=== PATIENT | male | born 1960 | race Caucasian/White ===

== ENCOUNTER 2019-09-28 07:25 | Outpatient (CLI) | payer BC, SELFPAY ==
[2019-09-28 07:40] LABS: Basophils Absolute Auto 0.03 K/mm3 (0.00-0.10); Basophils Percent Auto 0.5 % (0.0-1.0); Eosinophils Percent Auto 3.2 % (1.0-6.0); Hematocrit 41.9 % (40.0-54.0); Hemoglobin 14.2 g/dL (14.0-18.0); Immature Granulocyte Absolute 0.01 K/mm3 (0.00-0.00); Immature Granulocyte Percent A 0.2 % (0.0-0.0); Lymphocytes Absolute Auto 1.82 K/mm3 (1.10-4.50); Lymphocytes Percent Auto 28.9 % (18.0-42.0); Mean Corpuscular HGB Conc 33.9 g/dL (32.0-36.0); Mean Corpuscular Hemoglobin 31.3 pg (27.0-31.0); Mean Corpuscular Volume 92.5 fL (78.0-102.0); Mean Platelet Volume 9.5 fl (8.7-11.0); Monocytes Absolute Auto 0.73 K/mm3 (0.10-0.90); Monocytes Percent Auto 11.6 % (2.0-11.0); Neutrophils Absolute Auto 3.5 K/mm3 (1.7-7.2); Neutrophils Percent Auto 55.6 % (50.0-70.0); Platelet Count Result 175 K/mm3 (150-420); Red Blood Count 4.53 M/mm3 (4.70-6.10); Red Cell Distribution Width 12.9 % (11.6-14.4); White Blood Count 6.3 K/mm3 (4.8-10.8)
[2019-09-28 07:49] LABS: Hemoglobin A1C 6.9 % (<5.7)
[2019-09-28 08:52] LABS: Alanine Aminotransferase 24 U/L (16-63); Albumin Level 3.9 g/dL (3.4-5.0); Alkaline Phosphatase 72 U/L (46-116); Anion Gap 12.1 mmol/L (7-16); Aspartate Amino Transferase 21 U/L (15-37); Bilirubin,Total 1.3 mg/dL (0.00-1.00); Blood Urea Nitrogen 16 mg/dL (7-18); Calcium 8.9 mg/dL (8.5-10.1); Carbon Dioxide 30 mmol/L (21-32); Chloride 100 mmol/L (98-108); Cholesterol 113 mg/dL (0-200); Estimated Glomerular Filt Rate > 60; Glucose 158 mg/dL (70-99); HDL Direct 50 mg/dL (40-60); LDL Cholesterol Calculated 46 mg/dL (<130); Osmolality Calculated 290 mOsm/kg (285-295); Potassium 4.1 mmol/L (3.5-5.1); Prostate Specific Antigen 0.9 ng/mL (< OR = 4.0); Sodium 138 mmol/L (136-145); Triglycerides 84 mg/dL (0-150)
== END 2019-09-28 07:26 | disposition home or self-care (01) ==
PROVIDERS: PCP Internal Medicine; Visit Provider Internal Medicine
DX: E78.5 Hyperlipidemia, unspecified (principal); I10 Essential (primary) hypertension; E11.9 Type 2 diabetes mellitus without complications; Z12.5 Encounter for screening for malignant neoplasm of prostate
CPT/HCPCS: 36415; 80053; 80061; 83036; 84153; 85025; G0103

== ENCOUNTER 2020-07-13 07:38 | Outpatient (CLI) | payer BC, SELFPAY ==
--- NOTE | ~2020-07-13 | XR_ITS ---
EXAMINATION: XR sacrum coccyx min 2V DATE: 07/13/2020 08:04 INDICATION: Sacrococcygeal pain. TECHNIQUE: 3 views of the sacrum and coccyx were obtained. COMPARISON: Pelvis radiograph 03/28/2009 FINDINGS: Bone alignment is normal. No fracture. There is mild osteoarthritis of the sacroiliac joint s. IMPRESSION: 1. Mild osteoarthritis of the sacroiliac joints. Reviewed, dictated and finalized at location B. GRINDER
--- NOTE | ~2020-07-13 | XR_ITS ---
EXAMINATION: XR lumbar spine 2-3V DATE: 07/13/2020 08:03 INDICATION: Sacrococcygeal pain. TECHNIQUE: 3 views of lumbar spine were obtained. COMPARISON: None. FINDINGS: There is 4 degrees dextrocurvature of lumbar spine. Vertebral body heights and intervertebr al disc heights are normal. There are endplate osteophytes at most levels. There is multilevel mild f acet joint osteoarthritis. IMPRESSION: 1. Mild lumbar spondylosis. Reviewed, dictated and finalized at location B. 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 Mild lumbar spondylosis.
== END 2020-07-13 07:39 | disposition home or self-care (01) ==
LOC: CHSIMG 07:40
PROVIDERS: PCP Internal Medicine; Visit Provider Internal Medicine
DX: M53.3 Sacrococcygeal disorders, not elsewhere classified (principal)
CPT/HCPCS: 72100; 72220

== ENCOUNTER 2021-05-26 16:51 | Emergency (ER) | payer BC, SELFPAY ==
--- NOTE | ~2021-05-26 | XR_ITS ---
EXAMINATION: XR foot RT min 3V DATE: 05/26/2021 17:22 INDICATION: Right fifth toe injury. TECHNIQUE: 3 views of right foot were obtained. COMPARISON: None. FINDINGS: There is a transverse fracture of neck of fifth proximal phalanx. The distal fracture fragm ent demonstrates impaction and 21 degrees lateral angulation. There is mild osteoarthritis of first m etatarsophalangeal joint and some of the interphalangeal joints. There are enthesophytes at the poste rior and plantar aspects of calcaneal tuberosity. IMPRESSION: 1. Transverse fracture of neck of fifth proximal phalanx. Reviewed, dictated and finalized at location A. Y HELPER
[2021-05-26 17:10] VITALS: BP 150/84; PULSE 72; RESP 16; TEMP 36.3; O2SAT 99
--- NOTE | 2021-05-26 17:33 | ED.LOWEXIN ---
HPI - Extremity Injury (Lower) General Chief Complaint: Extremity Injury, Lower Stated Complaint: broken toe Source: patient Mode of arrival: ambulatory History of Present Illness HPI Narrative: is a 61-year-old gentleman that presents after he stubbed his toe causing some bruising swelling with some mild deformity with no numbness or tingling has good range of motion although mildly diminished in his right 5th toe. complaint: foot injury Injury: Right: toes ( 5th toe injury with bruising and swelling) Type of Injury: blunt Place: other Related Data Home Medications Medication Instructions Recorded Confirmed brimonidine 0.2 % eye drops 1 drp EACH EYE Q8H 01/23/21 05/26/21 latanoprost 0.005 % eye drops 1 drp EACH EYE DAILY 01/23/21 05/26/21 losartan 100 mg tablet 100 mg PO DAILY 01/23/21 05/26/21 metformin 500 mg tablet 500 mg PO TID 01/23/21 05/26/21 rosuvastatin 40 mg tablet 40 mg PO DAILY 01/23/21 05/26/21 Allergies Allergy/AdvReac Type Severity Reaction Status Date / Time No Known Allergies Allergy Verified 05/26/21 17:09 Review of Systems Review of Systems: All systems reviewed & are unremarkable except as noted in HPI and below PMFSH Past Medical History Medical History Coronary artery disease Family History Family History Mother Diabetes mellitus Hypertension Social History Social History Smoking status: Never smoker Alcohol intake: never Substance use: never Substance use type: does not use Exam Const: General: no acute distress Orientation/consciousness: patient oriented x3 HENMT: Head: normal to inspection Eyes: Conjunctivae: conjunctivae normal Pupils: Equal, round and reactive pupils present Neck: Neck: normal visual inspection, no lymphadenopathy and no meningeal signs Chest: Chest palpation & inspection: normal inspection of the chest Resp: Effort & Inspection: normal respiratory effort Auscultation: clear to auscultation bilaterally Cardio: Rate: regular rate Rhythm: regular rhythm GI: GI Palp: Yes Soft to palpation Percussion: Yes normal to percussion Skin: General skin exam: normal color Other: bruising right lateral aspect of his 5th toe Neuro: General: patient oriented x3 and moves all extremities Extrem: General: normal to inspection and edema Psych: Mental Status: mental status grossly normal Affect: normal affect Course Course Emergency Course: x-rays reviewed with patient and will bassam tape 5th toe to his 4th toe advised take Tylenol or Motrin for pain and follow-up with his primary care physician. Vital Signs Vital signs: Vital Signs Temperature 36.3 C L 05/26/21 17:10 Pulse Rate 72 05/26/21 17:10 Respiratory Rate 16 05/26/21 17:10 Blood Pressure 150/84 H 05/26/21 17:10 Pulse Oximetry 99 05/26/21 17:10 Temperature 36.3 C L 05/26/21 17:10 Pulse Rate 72 05/26/21 17:10 Respiratory Rate 16 05/26/21 17:10 Blood Pressure 150/84 H 05/26/21 17:10 Pulse Oximetry 99 05/26/21 17:10 Critical Care Time Critical Care Time Critical Care Time: No Discharge Plan Discharge Clinical Impression: Fracture of toe Qualifiers: Encounter type: initial encounter Toe: lesser toe Fracture type: closed Phalanx: distal Fracture alignment: nondisplaced Laterality: right Qualified Code(s): S92.534A - Nondisplaced fracture of distal phalanx of right lesser toe(s), initial encounter for closed fracture Patient Disposition: Home, Self-Care Condition: Stable Instructions: Antibiotic Form, Toe Fracture (ED) Prescriptions: No Action metformin 500 mg tablet 500 mg PO TID RF: 0 rosuvastatin 40 mg tablet 40 mg PO DAILY RF: 0 losartan 100 mg tablet 100 mg PO DAILY RF: 0 latanoprost 0.005 % drops 1 drp EACH EYE DAILY RF: 0 brimonid
== END 2021-05-26 17:45 | disposition home or self-care (01) ==
PROVIDERS: Emergency Provider Emergency Medicine; PCP Internal Medicine
DX: S92.534A Nondisplaced fracture of distal phalanx of right lesser toe(s), initial encounter for closed fracture (principal); W22.8XXA Striking against or struck by other objects, initial encounter
CPT/HCPCS: 73630; 99282; 99283

== ENCOUNTER 2021-08-02 14:34 | Outpatient (CLI) | payer BC, SELFPAY | END 2021-08-02 14:35 | disposition home or self-care (01) | PROVIDERS: PCP Internal Medicine; Visit Provider Otolaryngology | DX: H90.3 Sensorineural hearing loss, bilateral (principal) | CPT/HCPCS: 92557; 92567 ==

== ENCOUNTER 2021-09-12 07:59 | Outpatient (CLI) | payer BC, SELFPAY ==
--- NOTE | 2021-09-12 08:11 | ECG_ITS ---
Measurements Intervals [place] Rate: 53 P: 68 TN: 135 QRS: -40 QRSD: 160 T: 25 QT: 452 QTc: 426 Interpretive Statements SINUS BRADYCARDIA MARKED LEFT AXIS DEVIATION [QRS AXIS < -30] RIGHT BUNDLE BRANCH BLOCK [120+ ms QRS DURATION, UPRIGHT V1, 40+ ms S IN I/aVL/V4/V5/V6] ABNORMAL ECG NO PREVIOUS ECG AVAILABLE FOR COMPARISON Electronically Signed On 09-12-2021 14:04:11 CDT by Gordon Schwab M.D.
[2021-09-12 08:40] LABS: Anion Gap 5 mmol/L (8-16); Blood Urea Nitrogen 19 mg/dL (9-20); Calcium 9.1 mg/dL (8.4-10.2); Carbon Dioxide 30 mmol/L (22-30); Chloride 103 mmol/L (98-107); Estimated Glomerular Filt Rate > 60; Glucose 121 mg/dL (65-110); Potassium 4.8 mmol/L (3.4-5.0); Sodium 138 mmol/L (137-145)
== END 2021-09-12 08:00 | disposition home or self-care (01) ==
LOC: ANHSURGERY 08:04
PROVIDERS: Anesthesiology; PCP Internal Medicine; Visit Provider Surgery
DX: Z01.818 Encounter for other preprocedural examination (principal); K40.91 Unilateral inguinal hernia, without obstruction or gangrene, recurrent; I51.9 Heart disease, unspecified; E11.9 Type 2 diabetes mellitus without complications; I45.10 Unspecified right bundle-branch block; R00.1 Bradycardia, unspecified
CPT/HCPCS: 36415; 80048; 86850; 86900; 86901; 93005

== ENCOUNTER 2021-09-18 00:11 | Day surgery (SDC) | payer BC, SELFPAY ==
[2021-09-10 08:33] VITALS: BMI 21.4
--- NOTE | 2021-09-10 08:40 | PC.NURSE ---
Report to the Outpatient Waiting Room, entrance under the green pavilion located off [facility], at time _0600_ on date 09-18-2021_. OR Time: _0730_. - You and your visitor will be asked a series of questions to screen for COVID 19 for your protection. - A mask is required within the hospital. Preoperative COVID Testing Requirements: No COVID Test needed if: (proof is required; if not received patient will have Rapid Test prior to entry) - Patient has received COVID Vaccine at least 14 days prior to procedure date or - Patient has positive COVID test result within last 90 days of surgery date. COVID Test needed if above criteria is not met If not COVID vaccinated a COVID test must be conducted within 72 hours of surgery and patient is asked to isolate self from time of testing until procedure. You will go to the [facility] for your COVID testing. The [facility] Testing site is located at the corner of [address] [facility]. You will only be called if COVID results are positive and your surgeon may reschedule your elective surgery date. Patients may have clear liquids (water, carbonated beverages, clear teas, apple juice) until 3 hours prior to surgery with a maximum of 20 ounces. - No food from midnight until time of surgery - Infants may have breast milk until 4 hours before surgery, formula 6 hours prior to surgery. - Children will be allowed to drink immediately following surgery. If applicable, please bring a bottle or sippy cup to assist with drinking. Juice, water, soda, and popsicles are readily available. For infants on formula, please bring formula the day of surgery. Pacifiers are allowed. Take the following medications with a SIP of water the morning of surgery: Medications to discontinue per physician All vitamins and supplements Date to take last wwau [id number]___ Please no make-up, nail namibian, hairspray, perfume, deodorant, or body powder the day of surgery. No jewelry (including any body piercings) or valuables the day of surgery, leave them at home. Please take a shower or bath the night before, or the morning of, surgery with an Hebiclenseantibacterial soap. Wear comfortable, loose fitting clothing. Children are encouraged to wear pajamas. - Jewelry must be removed prior to entering the operating room. Rings and piercings that are not removed may be cut off. - The hospital will not accept responsibility for valuables. - Please leave all valuables, including medications, at home the day of surgery. If you are going home after surgery, a licensed backhaul driver must drive you home. - NO public transportation without another adult. - We recommend that an adult stay with you for 24 hours following discharge. - We also recommend that you do not drive, make important decision, drink alcoholic beverages, or take any drugs that were not prescribed by your health care provider for at least 24 hours after your discharge time. For Pediatric surgeries, we recommend two adults accompany the child home (only one inside the building at this time). One visitor will be allowed to accompany the patient into the hospital. Patients visitor will be instructed to remain with patient at all times or leave the building. We will allow the visitor to come back to the postoperative area when patient is ready. Follow any additional instructions given to you from your surgeon. Telephone instructions given to __Patient___and asked if any additional questions and then verbalized understanding. Patient advised to call surgeon office or pre surgery nurse liaison [phone] if any additional questions.
--- NOTE | 2021-09-17 15:20 | WPDANESEPPF ---
Anes - Initial Pre Proc Eval Procedure: Operation Date: 09/18/21 07:30 Proposed Procedures p Laparoscopic Right Recurrent Inguinal Hernia Repair with Mesh, Davinci Assisted - Jose Campo DO Date/Time: 09/17/21 15:20 Surgeon: Jose Campo DO Pre Op Diagnosis: recurrent right inguinal hernia Patient Data Age: 61 Gender: M Height: 1.78 m Weight: 67.8 kg Allergies Allergy/AdvReac Type Severity Reaction Status Date / Time No Known Allergies Allergy Verified 09/18/21 06:24 Home Medications Medication Instructions Recorded Confirmed Type brimonidine 0.2 % eye drops 1 drp EACH EYE Q8H 01/23/21 09/18/21 History latanoprost 0.005 % eye drops 1 drp EACH EYE DAILY 01/23/21 09/18/21 History aspirin 81 mg PO DAILY 09/10/21 09/18/21 History metformin 500 mg PO DAILY 09/10/21 09/18/21 History rosuvastatin 10 mg PO EVERY OTHER DAY 09/10/21 09/18/21 History Patient hx anesthesia problems: none Family hx anesthesia problems: none Results Review: All pre-operative results and documents have been reviewed as part of the pre-operative evaluation. [facility] Past Medical History Medical History (Updated 09/17/21 @ 15:21 by Rory Montana MD) Coronary artery disease Diabetes High blood pressure High cholesterol Surgical History Surgical History (Updated 09/17/21 @ 15:21 by Rory Montana MD) History of coronary artery stent placement History of inguinal hernia repair RIGHT SIDE 1979 Family History Family History Mother Diabetes mellitus Hypertension Social History Social History Smoking packs per day: 0.5 Smoking cigarettes per day: 10.0 Years smoked: 5 Smoking pack-years: 2.50 Smoking status: Former smoker Smoking end date: 09/10/84 Alcohol intake: current Drinks per week: 4 Alcohol use details: SOCIALLY Substance use: never Substance use type: does not use Living arrangements: with family 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 Informed Consent: The patient's anesthetic plan and its attendant risks and benefits were discussed with the patient/family/POA. Questions were solicited and answers provided to the satisfaction of the patient/family/POA.
[2021-09-18] VITALS (7 sets, daily range): BP systolic 108–135; BP diastolic 66–72; PULSE 48–76; RESP 12–17; TEMP 36.3; O2SAT 96–100
[2021-09-18] MEDS: ACETAMINOPHEN 500 MG TABLET 1000 MG PO (06:31)
[2021-09-18 06:43] LABS: Glucose Point of Care 122 mg/dl (65-105)
[2021-09-18] MEDS: LACTATED RINGERS 1,000 ML 30 ML IV CONT ×3 (07:00→10:00)
[2021-09-18] MEDS: KETOROLAC 15 MG/ML VIAL (*BKC) IV PUSH (07:01)
--- NOTE | 2021-09-18 07:12 | PM.IMHP ---
H&P: HPI History of Present Illness Date/Time: 09/18/21 07:12 Chief Complaint: right inguinal hernia Narrative: 61 yo man presents for right inguinal hernia repair. He denies any changes since last seen in office. Review of Systems Review of Systems: All systems reviewed & are unremarkable except as noted in HPI and below Constitutional: Constitutional: Denies chills, Denies fever(s), Denies headache(s) and Denies weight loss Eyes: Eyes: Denies change in vision ENT: Denies dizziness, Denies headache(s), Denies neck mass and Denies throat swelling Cardiovascular: Cardiovascular: Denies chest pain, Denies lightheadedness and Denies dyspnea Respiratory: Respiratory: Denies cough, Denies dyspnea and Denies wheezing Gastrointestinal: Gastrointestinal: Denies abdominal pain, Denies change in bowel habits, Denies nausea and Denies vomiting Genitourinary: Genitourinary: Denies hematuria and Denies dysuria Musculoskeletal: Musculoskeletal: Reports as per HPI Integumentary/Breasts: Skin/Breast: Reports as per HPI Neurologic: Denies dizziness and Denies headache(s) Allergic/Immunologic: Allergic/Immunologic: Denies throat swelling and Denies wheezing [facility] Past Medical History Medical History (Updated 09/17/21 @ 15:21 by Rory Montana MD) Coronary artery disease Diabetes High blood pressure High cholesterol Surgical History Surgical History (Updated 09/17/21 @ 15:21 by Rory Montana MD) History of coronary artery stent placement History of inguinal hernia repair RIGHT SIDE 1979 Family History Family History Mother Diabetes mellitus Hypertension Social History Social History Smoking packs per day: 0.5 Smoking cigarettes per day: 10.0 Years smoked: 5 Smoking pack-years: 2.50 Smoking status: Former smoker Smoking end date: 09/10/84 Alcohol intake: current Drinks per week: 4 Alcohol use details: SOCIALLY Substance use: never Substance use type: does not use Living arrangements: with family 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 care concerns: No Meds Home Medications and Allergies Home Medications Medication Instructions Recorded Confirmed Type brimonidine 0.2 % eye drops 1 drp EACH EYE Q8H 01/23/21 09/18/21 History latanoprost 0.005 % eye drops 1 drp EACH EYE DAILY 01/23/21 09/18/21 History aspirin 81 mg PO DAILY 09/10/21 09/18/21 History metformin 500 mg PO DAILY 09/10/21 09/18/21 History rosuvastatin 10 mg PO EVERY OTHER DAY 09/10/21 09/18/21 History Allergies Allergy/AdvReac Type Severity Reaction Status Date / Time No Known Allergies Allergy Verified 09/18/21 06:24 Vital Signs Vital Signs - 24 hr 09/18/21 06:12 Temperature 36.3 C L Pulse Rate 58 L Respiratory Rate 16 Blood Pressure 116/72 Pulse Oximetry 98 Exam Const: General: no acute distress and alert Orientation/consciousness: patient oriented x3 HENMT: Head: normocephalic and atraumatic Ears: hearing grossly normal bilaterally General nose exam: Normal nares present Mouth: Yes Normal oral and palatal mucosa present Eyes: Periorbital: periorbital findings normal Sclera: sclerae normal EOM: EOMs intact bilaterally Neck: Neck: normal visual inspection, no lymphadenopathy and trachea midline Chest: Chest palpation & inspection: normal inspection of the chest Resp: Effort & Inspection: normal respiratory effort Auscultation: clear to auscultation bilaterally Cardio: Jugular venous distension: no JVD Rate: regular rate Rhythm: regular rhythm Heart sounds: S1 normal heart sound present and S2 normal heart sound present Peripheral pulses: Peripheral pulses 2+ throughout GI: Inspection: normal to inspection GI Palp: Yes Soft to palpation, No Tenderness to palpation present (GI), No Guarding due to palpation present (GI), Yes Hernia pr
--- NOTE | 2021-09-18 07:30 | WPDHPUPDATE1 ---
History and Physical Update Update Date/Time: 09/18/21 07:30 History and Physical has been reviewed, including an updated exam of the patient. There are NO changes in the patient's condition. Risks, benefits, and alternatives have been discussed and questions answered. Patient agrees to proceed with procedure.
[2021-09-18] MEDS: ceFAZolin 2 GM/D5W 50 ML 2 GM/50 ML BAG IVPB (07:32)
--- NOTE | 2021-09-18 09:19 | W.PM.PROC2 ---
Procedure Note - Detailed Date of Procedure 09/18/21 Pre-op Diagnosis recurrent right inguinal hernia Post-op Diagnosis Same Procedure Performed 1. Laparoscopic recurrent right inguinal hernia repair with mesh, da Charisse assisted 2. Laparoscopic left inguinal hernia repair with mesh, da Charisse assisted Surgeon Jose Campo, Anesthesia General and Local (0.5% bupivacaine with epinephrine) Indications This is a 61-year-old man who presented with a right groin some discomfort over the past months. He does not recall any injury that caused this. He does have a history of a right inguinal hernia repair that was done open in 1979. Denies any other abdominal surgeries. He was found have a reducible right inguinal hernia on physical exam. Discussions were made with the patient treatment options. Decision was made to proceed with robotic assisted laparoscopic recurrent right hernia repair with mesh. Findings Upon inspecting the abdomen laparoscopically, patient was found to have a recurrent direct right inguinal hernia. He was also found to have an indirect left inguinal hernia. Decision was made to repair both hernias at the same time. A robotic transabdominal preperitoneal approach was utilized. Preperitoneal plane was created wide enough on each side and large Bard 3DMax mid mesh was placed on each side. No specimens were obtained for pathology. Description of Procedure Procedure as well as risks, benefits, and alternatives were discussed with the patient. Written consent was obtained and placed in chart prior to procedure. Patient was brought back to surgical suite. He was placed supine on operating table. Time-out was done to confirm patient and procedure. He was then intubated by Anesthesia Department. His abdomen was prepped and draped in sterile fashion using chlorhexidine prep. 0.5% bupivacaine with epinephrine was infiltrated at each location for incision. A 12 millimeter transverse incision was made just superior to the umbilicus using a 15 blade scalpel. Blunt dissection was carried out down to the linea alba. A vertical incision was made at the linea alba using a 15 blade scalpel. The peritoneum was then bluntly entered. A 12 millimeter trocar was inserted and carbon dioxide insufflation was used to create a pneumoperitoneum. A camera was inserted and the abdominal cavity was inspected. The patient was placed in slight Trendelenburg position. An 8 millimeter incision was made on the right lateral abdomen and an 8 millimeter trocar was inserted under direct visualization. Another 8 millimeter incision was made in the left lateral abdomen and an 8 millimeter trocar was inserted under direct visualization. The robotic arms were brought up to the patient's bedside and secured to the ports. The camera and instruments were inserted. I then moved over to the robotic console and took control of the camera and instruments. After careful inspection of the abdominal cavity, I began scoring the peritoneum along the right lower quadrant using scissors with electrocautery. The preperitoneal plane was entered and this was carefully dissected caudally along the inferior epigastric vessels. Careful dissection with scissors with electrocautery and blunt dissection was used to continue this dissection. I dissected far enough laterally to allow for mesh placement, and also dissected medially to identify the pubic arch and Marvin's ligament. The hernia sac was identified and carefully dissected posteriorly. The cord contents were also identified and the peritoneum was carefully dissected far enough posteriorly to allow for mesh placement. Once an adequate pocket was created, I then placed the mesh within the preperitoneal pocket and carefully unfolded it. The mesh was centered on the hernia defect with adequate overlap circumferentially. The inferior edge of the mesh was inspected to ensure that it was far enough away from the peritoneal edge. The
[2021-09-18 09:43] LABS: Glucose Point of Care 162 mg/dl (65-105)
== END 2021-09-18 11:30 | disposition home or self-care (01) ==
PROVIDERS: PCP Internal Medicine; Visit Provider Surgery
PROC: 8E0Y4CZ Robotic Assisted Procedure of Lower Extremity, Percutaneous Endoscopic Approach (ICD-10-PCS; CPT 49650; principal; 2021-09-18 07:30)
DX: K40.91 Unilateral inguinal hernia, without obstruction or gangrene, recurrent (principal); K40.90 Unilateral inguinal hernia, without obstruction or gangrene, not specified as recurrent; I25.10 Atherosclerotic heart disease of native coronary artery without angina pectoris; E11.9 Type 2 diabetes mellitus without complications; E78.00 Pure hypercholesterolemia, unspecified; I10 Essential (primary) hypertension; Z87.891 Personal history of nicotine dependence; Z79.84 Long term (current) use of oral hypoglycemic drugs; Z79.82 Long term (current) use of aspirin; Z95.5 Presence of coronary angioplasty implant and graft
CPT/HCPCS: 49651; 49650; S2900; 82948; A9270; C1781; J0690; J1100; J1885; J2405; J2704; J2710; J3010; J7120

== ENCOUNTER 2023-09-03 02:40 | Day surgery (SDC) | payer BC, SELFPAY ==
[2023-09-02 13:35] VITALS: BMI 23.8
[2023-09-03 09:36] VITALS: BP 164/96; PULSE 62; RESP 16; O2SAT 97
--- NOTE | 2023-09-03 10:04 | P.OP_ITS ---
Procedure Note - Detailed Date of Procedure 09/03/23 Pre-op Diagnosis Unexplained recurrent near-syncope Post-op Diagnosis Same Procedure Performed Loop recorder implantation Surgeon Dany Griffin MD Anesthesia Local Indications Unexplained recurrent near-syncope Findings Brief History of Present Illness: Patient is a very pleasant 63-year-old male with a history of CAD, hypertension, hyperlipidemia with complaints of recurrent unexplained near-syncope with evidence for sinus pauses and bradycardia as possible contribution referred for loop recorder implantation for further evaluation. Description of Procedure After verbal and written informed consent was obtained from the patient risks, benefits, and alternatives explained in detail the patient agreed to proceed with the plan of care as outlined above. Patient was evaluated at bedside in the [facility] procedure room. Patient was placed the appropriate supine position. Left anterior chest wall was prepped and draped in the usual sterile fashion. Operators in appropriate sterile garb. The left 4th intercostal space was identified and marked. Utilizing approximately 17 cc of 1% subcutaneous lidocaine the left anterior chest wall was then locally anesthetized. After local anesthesia was achieved, 2 fingerbreadths left of the sternum at the 4th intercostal space was again identified and a 1 cm incision was made with the inc luded skin punch tool. Following this with the included introducer, a tract was made subcutaneously at a 45 degree angle from the sternum. The introducer was then inverted 180 degrees and with the included plunger the Medtronic REVEAL LINQ II loop recorder was advanced subcutaneously into position easily and without complication. The plunger was then removed followed by the introducer. Manual pressure was held for least 5-10 min with excellent hemostasis. The device was then interrogated and revealed excellent fidelity and measured at 0.8mV. The Medtronic REVEAL LINQ II SN [id number] was implanted without complication. The incision was then approximated and closed using Exofin skin adhesive. The incision was then covered with a sterile dressing. Complications: None Implants Medtronic Reveal LINQ II SN [id number] Estimated Blood Loss 1 Drains No Packing No Pathology None sent Complications No immediate complications Condition Stable Disposition Same day
--- NOTE | 2023-09-03 10:04 | WPDHPUPDATE1 ---
History and Physical Update Update Date/Time: 09/03/23 10:04 History and Physical has been reviewed, including an updated exam of the patient. There are NO changes in the patient's condition. Risks, benefits, and alternatives have been discussed and questions answered. Patient agrees to proceed with procedure.
[2023-09-03 10:10] VITALS: BP 167/94; PULSE 70; RESP 17; O2SAT 96
[2023-09-03 10:15] VITALS: BP 165/95; PULSE 75; RESP 21; O2SAT 96
[2023-09-03 10:20] VITALS: BP 176/101; PULSE 77; RESP 16; O2SAT 98
[2023-09-03 10:25] VITALS: BP 166/104; PULSE 78; RESP 22; O2SAT 97
== END 2023-09-03 10:52 | disposition home or self-care (01) ==
PROVIDERS: PCP Internal Medicine; Visit Provider Internal Medicine Cardiovascular Disease
PROC: (CPT 33285; principal; 2023-09-03 10:00)
DX: R55 Syncope and collapse (principal); I25.10 Atherosclerotic heart disease of native coronary artery without angina pectoris; I10 Essential (primary) hypertension; E78.5 Hyperlipidemia, unspecified
CPT/HCPCS: 33285; C1764

== ENCOUNTER 2024-05-06 01:33 | Day surgery (SDC) | payer BC, SELFPAY ==
[2024-05-05 13:10] VITALS: BMI 23.3
[2024-05-06] VITALS (18 sets, daily range): BP systolic 122–169; BP diastolic 86–103; PULSE 54–67; RESP 12–20; TEMP 37; O2SAT 94–97; BMI 24.7
[2024-05-06 09:08] LABS: Basophils Percent Auto 0.5 % (0.2-1.2); Eosinophils Absolute Auto 0.2 K/mm3 (0-0.3); Eosinophils Percent Auto 3.2 % (0-4.4); Hematocrit 46.1 % (42.0-52.0); Hemoglobin 15.5 g/dL (14.0-18.0); Immature Granulocyte Absolute 0.02 K/mm3 (0.00-0.031); Immature Granulocyte Percent A 0.4 % (0-0.5); Lymphocytes Percent Auto 19.4 % (18.3-44.2); Mean Corpuscular HGB Conc 33.6 g/dl (32-36); Mean Corpuscular Hemoglobin 31.4 pg (26-34); Mean Corpuscular Volume 93.5 fl (80-100); Mean Platelet Volume 9.5 fl (7.4-10.4); Monocytes Absolute Auto 0.6 K/mm3 (0.1-0.6); Monocytes Percent Auto 11.1 % (2.6-8.5); Neutrophils Absolute Auto 3.7 K/mm3 (1.3-6.7); Neutrophils Percent Auto 65.4 % (45.5-73.1); Platelet Count Result 197 k/mm3 (150-375); Red Blood Count 4.93 M/mm3 (4.6-6.20); Red Cell Distribution Width 13.2 % (11.5-14.5); White Blood Count 5.7 K/mm3 (4.5-10.0)
[2024-05-06 09:23] LABS: Anion Gap 8 mmol/L (4-12); Blood Urea Nitrogen 15 mg/dL (9-20); Calcium 9.3 mg/dL (8.4-10.2); Carbon Dioxide 27 mmol/L (22-30); Chloride 104 mmol/L (98-107); Estimated CRCL calculation 83 ml/min; Estimated Glomerular Filt Rate > 60; Glucose 162 mg/dL (65-110); Potassium 4.5 mmol/L (3.4-5.0); Sodium 139 mmol/L (137-145)
--- NOTE | 2024-05-06 10:40 | WPDHPUPDATE1 ---
History and Physical Update Update Date/Time: 05/06/24 10:40 History and Physical has been reviewed, including an updated exam of the patient. There are NO changes in the patient's condition. Risks, benefits, and alternatives have been discussed and questions answered. Patient agrees to proceed with procedure.
--- NOTE | 2024-05-06 10:41 | P.SEDATION_ITS ---
Moderate Sedation Note-Pt Data Patient Data Allergies Allergy/AdvReac Type Severity Reaction Status Date / Time No Known Allergies Allergy Verified 05/06/24 08:52 Home Medications Medication Instructions Recorded Confirmed Type brimonidine 0.2 % eye drops 1 drp EACH EYE BID 01/23/21 05/05/24 History latanoprost 0.005 % eye drops 1 drp EACH EYE HS 01/23/21 05/05/24 History aspirin 81 mg tablet 81 mg PO HS 09/10/21 05/05/24 History metformin 500 mg tablet,extended 1,000 mg PO HS 09/10/21 05/05/24 History release 24 hr losartan 50 mg tablet 50 mg PO HS 09/02/23 05/05/24 History rosuvastatin 40 mg tablet 40 mg PO HS 09/02/23 05/05/24 History Sedation/Anesthesia: No previous sedation/anesthesia problems (including family history). [facility] Past Medical History Medical History Coronary artery disease Diabetes High blood pressure High cholesterol Surgical History Surgical History History of coronary artery stent placement History of inguinal hernia repair RIGHT SIDE 1980 History of inguinal hernia repair 09/18/21 Laparoscopic recurrent right inguinal hernia repair with mesh, da Charisse assisted 2. 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 Gender identity (if verbalized by the patient): Male Sexual Orientation (if Verbalized by the Patient): Straight or Heterosexual Spiritual care concerns: No Mod Sed Physical Exam Physical Exam Pre Procedural Exam: Normal: Heart Rate and Heart Rhythm Hours since solid foods: 12 Hours since liquid intake: 12 Mallampati Classification: class II Internal Medicine - PN: Obj Da Vital Signs Vital Signs: Vital Signs - 24 hr 05/06/24 08:53 Temperature 37.0 C Pulse Rate 58 L Respiratory Rate 17 Blood Pressure 122/88 Pulse Oximetry 96 Oxygen Delivery Room Air Labs 05/06/24 08:56 05/06/24 08:56 Labs: Laboratory Results - last 24 hr 05/06/24 08:56 WBC 5.7 RBC 4.93 Hgb 15.5 Hct 46.1 MCV 93.5 MCH 31.4 MCHC 33.6 RDW 13.2 Plt Count 197 MPV 9.5 Immature Gran % (Auto) 0.4 Neut % (Auto) 65.4 Lymph % (Auto) 19.4 O'Brien % (Auto) 11.1 H Eos % (Auto) 3.2 Baso % (Auto) 0.5 Lymph # (Auto) 1.10 O'Brien # (Auto) 0.6 Eos # (Auto) 0.2 Baso # (Auto) 0.0 Abs Immat Gran (auto) 0.02 Absolute Neuts (auto) 3.7 Absolute Nucleated RBC 0.000 Nucleated RBC % 0.0 Sodium 139 Potassium 4.5 Chloride 104 Carbon Dioxide 27 Anion Gap 8 BUN 15 Creatinine 0.80 Estim Creat Clear Calc 83 Estimated GFR > 60 Glucose 162 H Calcium 9.3 ASA Classification/Sedation ASA Classification/Sedation ASA Class: III Emergent: No Risks: Risks, benefits and alternatives explained and patient/family accepted plan for sedation. Patient re-evaluated immediately prior to sedation.
--- NOTE | 2024-05-06 12:25 | WPDCARDPROC ---
Cardiac Cath Procedure Note Date of procedure:: 05/06/24 Performing physician:: CATHETERIZATION LABORATORY REPORT Procedure Date: 05/06/2024 Referring Physician: Yolanda Moore NP Anesthesia: Versed and Fentanyl were ordered and given in my presence at 1127 procedure ended at 1222. Supervision of nurse, Zayda Kan monitored moderate sedation with 2mg Versed and 50mcg Fentanyl was provided for 55 minutes. Pre-op Diagnosis: Angina CCS III Post-op Diagnosis: Angina CCS III Procedure(s): Left heart catheterization with coronary angiography PTCA Access Site: Right radial artery; hemostasis with TR band Brief History and Clinical Indications: All risks, benefits and alternatives to left heart catheterization with or without percutaneous coronary intervention was discussed at length with the patient. Risk of complications including but not limited to bleeding, infection, arrhythmia, stroke, worsening kidney function, blood loss, groin hematoma, limb loss, emergency coronary artery bypass grafting, and even were discussed with the patient and all questions were answered. The patient understood and wished to proceed. Time out called, patient name, date of , medical record number, allergies, procedure performed, identify Database Reporting Consultant, patient and staff member concurred with accurate data, procedure carried on. Findings: LEFT HEART CATHETERIZATION FINDINGS: 1. Left main: The left main coronary artery is widely patent without any significant obstructive disease. 2. Left anterior descending: The LAD gives off 3 diagonal branches. the 1st 2 diagonal branches are small size vessels with luminal irregularities. The 3rd diagonal branch is very small and insignificant. 3. Left circumflex: The left circumflex artery gives off 3 OM branches. OM1 branch is a small caliber vessel with luminal irregularities. OM2 is a small vessel that provides 2 additional small branches. The remainder of the OM2 to has luminal irregularities. OM3 is a small-caliber vessel. The proximal left circumflex has a 70% stenosis. The left circumflex provides collaterals to a RPL branch. 4. Right coronary artery: The RCA has 10-20% stenosis in its proximal body. There is an area of 70% proximalInStent restenoses. at the distal edge of previously placed bare metal stent, there is a 99% stenosis. distal to this vessel there is antegrade flow contributing to myocardial perfusion in PDA and posterior lateral branches. 5. Left ventricle: A. End-diastolic pressure 28 mmHg. B. LV gram deferred. C. No significant gradient across aortic valve on catheter pullback. 6. Opening AO pressure 1127 and closing AO pressure 1222 Description of Procedure: Informed consent signed and placed in the chart. Patient transferred to geochemical laboratory technician room. Prepped and draped in usual sterile fashion. 2% lidocaine injected subcutaneously in right wrist area. 22-gauge venipuncture catheter used to access the right radial artery with the Seldinger technique. 6-FR slender sheath placed in right radial artery. Nitroglycerin 200mcg, Verapamil 2.5mg, and Heparin 5000U was given intraarterial through the sheath. J wire advanced under fluoroscopy 5F TIG diagnostic catheter engaged Left Main Coronary Artery. 5F TIG diagnostic catheter engaged Right Coronary Artery Multiple orthogonal angiogram obtained and reviewed 5F Pigtail diagnostic catheter crossed aortic valve to obtain LVEDP, LV angiogram deferred. Hemostasis was achieved by application of TR band. Procedure Description for PCI: Heparin was used for anticoagulation (ACT maintained above 250) Patient loaded with heparin at 70 units/kg. 6F AL 0.75 guide catheter was used to intubate the RCA. 0.014 Runthrough NS coronary wire was passed in to the distal rPDA The lesion was pre-dilated with a 1.5mm x 10mm balloon inflated to high NINO. At this time, a 2.5 x 10 balloon was attempted to the be negotiated into the lesion however was unable to cross despite multiple times. A Pairing Machine Operator 150 coronary wire was then negotiated into the distal right PDA and a run-through wire serve as a bassam wire. The 2.5 x 10 mm balloon was then re-attempted and was once again unable to cross. At this time a GuideLiner was used for further support. Despite GuideLiner support, neither did 2.5 x 10 mm balloon nor a 2.0 by 10 mm balloon was able to cross. The of 1.5 x 10 mm balloon was renegotiated into the lesion and the lesion was once again dilated to high atmospheres. At this time a 2.5 x 15 mm Orsiro SOO was attempted and was unable to cross. After consideration, all equipment was removed under fluoroscopy and final angiography was performed showing no immediate complications. Assessment: PTCA of the distal ISR. Would recommend possible laser atherectomy assisted PCI Post Operative Condition: Stable No significant blood loss Disposition: Home Plan: The patient will be monitored in the recovery area. Start dual anti-platelet therapy. He is unable to tolerate beta-sixto or calcium channel sixto secondary to bradycardia and pauses. His blood pressure is not able to tolerate nitrates. Therefore we will re-attempt PCI with laser atherectomy. Will also consider PCI of proximal left circumflex. Dex Rodriguez Interventional Cardiology
[2024-05-06 14:28] LABS: Activated Clotting Time 299 SEC (74-137)
== END 2024-05-06 17:04 | disposition home or self-care (01) ==
PROVIDERS: PCP Internal Medicine; Visit Provider Internal Medicine
PROC: 4A023N7 Measurement of Cardiac Sampling and Pressure, Left Heart, Percutaneous Approach (ICD-10-PCS; CPT 93452; principal; 2024-05-06 10:00)
PROC: 02703ZZ Dilation of Coronary Artery, One Artery, Percutaneous Approach (ICD-10-PCS; CPT 92920; 2024-05-06 10:00)
DX: I25.118 Atherosclerotic heart disease of native coronary artery with other forms of angina pectoris (principal); T82.855A Stenosis of coronary artery stent, initial encounter; Y83.8 Other surgical procedures as the cause of abnormal reaction of the patient, or of later complication, without mention of misadventure at the time of the procedure; E11.9 Type 2 diabetes mellitus without complications; I10 Essential (primary) hypertension; E78.00 Pure hypercholesterolemia, unspecified; Z79.82 Long term (current) use of aspirin; Z79.84 Long term (current) use of oral hypoglycemic drugs; Z87.891 Personal history of nicotine dependence
CPT/HCPCS: 36415; 80048; 85025; 92920; 93458; C1725; C1769; C1887; J1644; J2003; J2250; J2305; J3010; J7040

== ENCOUNTER 2024-11-26 08:00 | Outpatient (RCR) | payer BC, SELFPAY ==
[2024-08-31 14:32] VITALS: BP 146/92; PULSE 60; RESP 16; O2SAT 97; BMI 24.1
--- NOTE | 2024-09-03 08:34 | ECG_ITS ---
Test Date: 2024-09-03 08:50:17 Measurements Intervals [place] Rate: 61 P: 69 TX: 146 QRS: -64 QRSD: 162 T: 14 QT: 390 QTc: 394 Interpretive Statements SINUS RHYTHM WITH FREQUENT VENTRICULAR PREMATURE COMPLEXES WITH OCCASIONAL SUPRAVENTRICULAR PREMATURE COMPLEXES RIGHT BUNDLE BRANCH BLOCK [120+ ms QRS DURATION, UPRIGHT V1, 40+ ms S IN I/aVL/V4/V5/V6] LEFT ANTERIOR FASCICULAR BLOCK [QRS AXIS <= -45, QR IN I, RS IN II] No previous ECG available for comparison Electronically Signed On 09-03-2024 16:30:35 CDT by Carolina Bell M.D.
--- NOTE | 2024-09-03 08:35 | PCCPR ---
Pt came in this morning reporting that he received a call from the cardiology office that his loop recorder had been picking up an increase in PVC activity. They reduced Losartan and added metoprolol 25mg daily. Pt has not taken yet because he uses [facility]. Pt placed on telemetry and showing slow bigeminy with a heart rate in the 30's. See note/telemetry in [facility] record system. Asymptomatic. B/P stable 125/59, SpO2 97%. STAT EKG obtained. Call placed to Dr. Jason Rodriguez office, message left with answering service. Call placed to Dr. España's office and he would like patient to come straight over to the office to be seen. Pt agreeable. Pt departed A&O x4 and asymptomatic.
== END 2024-11-26 10:27 | disposition home or self-care (01) ==
PROVIDERS: PCP Internal Medicine; Visit Provider Internal Medicine
DX: Z95.5 Presence of coronary angioplasty implant and graft (principal)
CPT/HCPCS: 93005; 93798

== ENCOUNTER 2025-03-18 12:05 | Outpatient (CLI) | payer BC, SELFPAY ==
--- OUTSIDE RECORDS SUMMARY | 2015-09-26 10:03 | XMS_ITS | Continuity of Care Document ---
Author Organization [facility] Address [address] [place] [address] Phone Care Team Providers Care Receiving Coordinator Name Role Phone Gamal Cortez MD Unavailable Unavailable Advance Directives Directive Yes / No Effective Date File Name No Information Encounters Encounter Description Practice Location Reason(s) For Visit Diagnoses Date Provider Providers Copied on Encounter [facility], [address], [place], [place], [id number], tel:[phone] [facility] No Information Diego Yeung. [address] , [facility] [address], [place], [place], [id number]. tel:[phone] Family History Family Member Type Diagnosis Age At Onset No Information Payers Payer name Insurance type Covered democrat ID Authoriza tion(s) No Information Social History Type Description Quantity Date Captured Comments Sex Male Smoking Status No Information Chief Complaint And Reason For Visit No Information Reason For Referral Reason For Referral No Information History Of Present Illness Encounter Date Complaint History Of Prese nt Illness No Information Functional Status Date Functional Assessmen t No Information Instructions Date Instruction Additional Infor mation No Information Assessments Type Assessment Date No Information Patient Care Teams Name Effective Dates (start - stop) Status Members No Information
--- OUTSIDE RECORDS SUMMARY | 2025-03-18 12:08 | XMS_ITS | Encounter Summary ---
Author Organization [facility] Address 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
--- OUTSIDE RECORDS SUMMARY | 2025-03-18 12:08 | XMS_ITS | Encounter Summary ---
Author Organization [facility] Address 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
--- OUTSIDE RECORDS SUMMARY | 2025-03-18 12:08 | XMS_ITS | Encounter Summary ---
Author Organization [facility] Address [address] [place] [address] Care Team Providers Care Housemaid Name Role Phone Eric España MD Primary Care Provider [phone] Cary Holm CHIEF CHEMIST Unavailable Encounter Details Date Type Department Care Team (Late st Contact Info) Description 02/23/2008 Orders Only [facility] Health Information Management [address] [place] [address] Scanning, Provider Social History Tobacco Use Types Packs/Day Years Used Date Smoking Tobacco: Never Assessed Sex and Gender Information Value Date Recorded Sex Assigned at Not on file Legal Sex Male 12:18 PM STOCK CONTROLLER Gender Identity Male 04/30/2021 11:38 AM STOCK CONTROLLER Sexual Orientation Not on file documented as of this encounter Plan of Treatment Not on file documented as of this encounter Procedures Procedure Name Priority Date/Time Associated Diagnosis Comments CARDIOLOGY DOCUMENT SCAN 02/23/2008 documented in this encounter Results * SCAN - CARDIOLOGY (02/23/2008) Anatomical Region Laterality Modality Other us Provider Scanning CV CARDIAC SERVICES PROCEDURES Final Result documented in this encounter Visit Diagnoses Not on filedocumented in this encounter Care Teams Housemaid Relationship Specialty Start Date End Date Eric España MD PCP - General Internal Medicine 04/24/17 Cary Holm NP Nurse Practitioner 04/19/24 documented as of this encounter
--- OUTSIDE RECORDS SUMMARY | 2025-03-18 12:08 | XMS_ITS ---
Author Organization [facility] Address [address] [place] [phone] Care Team Providers Care Baseball Hand Sewer Name Role Phone Eric España MD Primary Care Provider [phone] Cary Holm FIRE PREVENTION CHIEF Unavailable Active Problems Problem Noted Date Diagnosed Date PVC (premature ventricular contraction) 01/21/20 25 Assessment & Plan (01/20/2025 5:12 PM CDT): Idiopathic ventricular ectopy, symptomatic. He most likely is experiencing a concealed mechanical bradycardia as a result of intermittent bigeminy, rather than true bradycardia. His loop recorder did demonstrate pauses on several occasions, but these appeared to be nocturnal, and are not involved in the clinical scenario. I recommended a trial of pharmacologic therapy. I recommended that the patient discontinue metoprolol, and initiate therapy with low dose sotalol (40 mg twice daily). After 2-3 days, we will obtain an ECG, in order to ensure that the patient is tolerating this medication without excessive QT prolongation. We will attempt to limit the dose of metoprolol to that which is effective. The patient will follow-up with me in 1-2 months for an office visit and twelve- lead ECG. Melanoma of back 04/19/2024 Status post placement of implantable loop record er 09/05/2023 Overview (09/05/2023): Medtronic [id number] Loop Recorder. Dx; Syncope, Poss SSS, Bifascicular Block. DOI 09/03/2023-Elias. [facility] remote monitoring. Sick sinus syndrome 08/15/2023 Bifascicular block 08/15/2023 Near syncope 08/15/2023 Labile hypertension 06/13/2023 Bradycardia 06/13/2023 Dizziness 06/13/2023 Coronary artery disease invo [place]ving [place] coronary artery of [place] heart without angina pectoris 04/28/2017 Overview (04/25/2018): Coronary artery disease. Prior placement of a 4.0 x 16 stainless steel stent to the RCA in 2007. Residual 70% stenosis of mid circumflex with negative nuclear stress test 2007. Updated stress echo 05/09/2017 revealing negative stress echo for ischemia to 100% maximum age predicted heart rate. Complete right bundle-branch block per EKG. Assessment & Plan (07/10/2021 2:29 PM SUPERVISOR ADULT EDUCATION): Stable continue Crestor,, aspirin Assessment & Plan (04/27/2020 9:25 AM SUPERVISOR ADULT EDUCATION): Continue medical care and treatment Assessment & Plan (04/26/2019 8:09 AM SUPERVISOR ADULT EDUCATION): Continue medical care and treatment Assessment & Plan (04/25/2018 9:30 AM CDT): Continue medical care and treatment Assessment & Plan (04/28/2017 3:11 PM SUPERVISOR ADULT EDUCATION): CAD S/p Stainless steel stent to the RCA in 2007, 4.0 x 16 70% Circ stenosis Negative nuclear stress Continue medical care and treatment Mixed diabetic hyperlipidemi a associated with type 2 diabetes mellitus 04/28/2017 Assessment & Plan (07/10/2021 2:30 PM SUPERVISOR ADULT EDUCATION): Stable Continue Crestor, aspirin Assessment & Plan (04/27/2020 9:25 AM SUPERVISOR ADULT EDUCATION): Continue medical care and treatment Assessment & Plan (04/26/2019 8:08 AM SUPERVISOR ADULT EDUCATION): Continue medical care and treatment Assessment & Plan (04/25/2018 9:28 AM CDT): Continue medical care and treat Assessment & Plan (04/28/2017 8:15 AM SUPERVISOR ADULT EDUCATION): Continue medical care and treatment Hypertension associated with diabetes 04/28/2017 Assessment & Plan (07/10/2021 2:29 PM SUPERVISOR ADULT EDUCATION): Stable Continue weight reduction Assessment & Plan (04/27/2020 9:25 AM SUPERVISOR ADULT EDUCATION): Continue medical care and treatment Assessment & Plan (04/26/2019 8:09 AM SUPERVISOR ADULT EDUCATION): Continue medical care and treatment Assessment & Plan (04/25/2018 9:29 AM CDT): Continue medical care and treat Assessment & Plan (04/28/2017 3:34 PM SUPERVISOR ADULT EDUCATION): Armani increase hydrochlorothiazide to 12.5 mg Friday. Otherwise Continue medical care and treatment Current Treatment and Therapy Plans No current plan information found. Past Treatment and Therapy Plans No past plan information found. Lifetime Dose Tracking * Chemical Lifetime Dose Automatic Entry Manual Entr y Fluoro Time 14.4 minutes 0 minutes 14.4 minutes Air kerma at the reference point (Ka,r) 1,797 mGy 0 mGy 1,797 mGy
--- OUTSIDE RECORDS SUMMARY | 2025-03-18 12:08 | XMS_ITS | Clinical Summary ---
Author Organization [facility] D Address [address] [place] [phone] Care Team Providers Care Vehicle Trimmer Name Role Phone Eric España MD Primary Care Provider [phone] Cary Holm SIEBEL DEVELOPER Unavailable Allergies No known active allergies Medications aspirin (ASPIR-LOW) 81 mg tablet 1 tab daily 0 8 Active brimonidine (ALPHAGAN) 0.15 % ophthalmic solutionIndicat ions:open angle glaucoma Administer 1 drop into both eyes 2 (two) times a day 0 8 Active latanoprost (XALATAN) 0.005 % ophthalmic solutionIndicat ions:open angle glaucoma Administer 1 drop into both eyes nightly 0 8 Active metFORMIN (FORTAMET) 1,000 mg 24 hr tabletIndicatio ns:type 2 diabetes mellitus Take 1 tablet (1,000 mg total) by mouth daily with dinner 0 8 Active multivitamin tabletIndicatio ns:Vitamin Deficiency Prevention Take 1 tablet by mouth biofuels product development manager before breakfast Active cholecalciferol (VITAMIN D-3) 400 unit capsuleIndicati ons:supplement Take 1 tablet/capsule (400 Units total) by mouth biofuels product development manager before breakfast Active ascorbic acid (EMMA-C ORAL)Indication s:supplement Take 1 tablet by mouth biofuels product development manager before breakfast Active vitamin B complex capsuleIndicati ons:Vitamin Deficiency Prevention Take 1 capsule by mouth biofuels product development manager before breakfast Active docosahexaenoic acid/epa (FISH OIL ORAL)Indication s:supplement Take 1 tablet by mouth biofuels product development manager before breakfast Active rosuvastatin (CRESTOR) 40 mg tabletIndicatio ns:hyperlipidem ia Take 1 tablet (40 mg total) by mouth nightly 90 tablet 1 5 Active clopidogreL (PLAVIX) 75 mg tablet Take 1 tablet (75 mg total) by mouth daily 90 tablet 1 5 Active losartan (COZAAR) 50 mg tablet Take 1 tablet (50 mg total) by mouth daily 90 tablet 5 11/30/19 26 Active sotaloL (BETAPACE) 80 mg tablet Take 0.5 tablets (40 mg total) by mouth 2 (two) times a day 30 tablet 11 5 01/21/20 26 Active Active Problems Problem Noted Date Diagnosed Date [...] Syncope, Poss SSS, Bifascicular Block. DOI 09/03/2023-[place]. [employer] remote monitoring. Sick sinus syndrome 08/15/2023 Bifascicular block 08/15/2023 Near syncope 08/15/2023 Labile hypertension 06/13/2023 Bradycardia 06/13/2023 Dizziness 06/13/2023 Coronary artery disease invo lving [place] coronary artery of [place] heart without angina pectoris 04/28/2017 Overview (04/25/2018): [...] EKG. Assessment & Plan (07/10/2021 2:29 PM REGIONAL CLINICAL DIRECTOR): Stable continue Crestor,, aspirin Assessment & Plan (04/27/2020 9:25 AM REGIONAL CLINICAL DIRECTOR): Continue medical care and treatment Assessment & Plan (04/26/2019 8:09 AM REGIONAL CLINICAL DIRECTOR): Continue medical care and treatment Assessment & Plan (04/25/2018 9:30 AM CDT): Continue medical care and treatment Assessment & Plan (04/28/2017 3:11 PM REGIONAL CLINICAL DIRECTOR): CAD S/p Stainless steel stent to the RCA in 2007, 4.0 x 16 70% Circ stenosis Negative nuclear stress Continue medical care and treatment Mixed diabetic hyperlipidemi a associated with type 2 diabetes mellitus 04/28/2017 Assessment & Plan (07/10/2021 2:30 PM REGIONAL CLINICAL DIRECTOR): Stable Continue Crestor, aspirin Assessment & Plan (04/27/2020 9:25 AM REGIONAL CLINICAL DIRECTOR): Continue medical care and treatment Assessment & Plan (04/26/2019 8:08 AM REGIONAL CLINICAL DIRECTOR): Continue medical care and treatment Assessment & Plan (04/25/2018 9:28 AM CDT): Continue medical care and treat Assessment & Plan (04/28/2017 8:15 AM REGIONAL CLINICAL DIRECTOR): Continue medical care and treatment Hypertension associated with diabetes 04/28/2017 Assessment & Plan (07/10/2021 2:29 PM REGIONAL CLINICAL DIRECTOR): Stable Continue weight reduction Assessment & Plan (04/27/2020 9:25 AM REGIONAL CLINICAL DIRECTOR): Continue medical care and treatment Assessment & Plan (04/26/2019 8:09 AM REGIONAL CLINICAL DIRECTOR): Continue medical care and treatment Assessment & Plan (04/25/2018 9:29 AM CDT): Continue medical care and treat Assessment & Plan (04/28/2017 3:34 PM REGIONAL CLINICAL DIRECTOR): Armani increase hydrochlorothiazide to 12.5 mg Friday. Otherwise Continue medical care and treatment Encounters Date Type Department Care Team Description 02/14/2025 7:45 AM CDT Ancillary Procedure [facility] [address] [place] [address] [place] [phone] Bifascicular block; Status post placement of implantable loop recorder; Near syncope 01/24/2025 10:30 AM CDT [facility] [address] [place] [address] [place] [phone] Cardiac arrhythmia, unspecified cardiac arrhythmia type 01/20/2025 11:00 AM CDT Office [facility] [address] [place] [address] [place] [phone] Juan Llanos MD Cardiac arrhythmia, unspecified cardiac arrhythmia type (Primary Dx); PVC (premature ventricular contraction); Status post placement of implantable loop recorder 01/05/2025 3:30 PM CDT Office Visit [facility] Medicine Nephrology [address] [facility] 2nd Floor [address] [place] [address] Natalie Grullon MD Isolated proteinuria with morphologic lesion (Primary Dx) 01/03/2025 7:15 AM CDT Ancillary Procedure [facility] [address] [place] [address] [place] [phone] Bifascicular block; Status post placement of implantable loop recorder; Near syncope from Last 3 Months Surgical History Surgery Date Site/Laterality Comments CORONARY ANGIOPLASTY WITH STENT PLACEMENT 06/23/2007 - 06/22/2008 liberte stent placed to RCA 4.0x16 CARDIAC SURGERY 01/22/2024 - 02/21/2024 loop recorder COLONOSCOPY unknown date HERNIA REPAIR 06/23/1979 - 06/22/1980 CARDIAC STENT PLACEMENT 06/11/2024 Medical History Medical History Date Comments CAD (coronary artery disease) Hyperlipidemia Hypertension Melanoma of back (HCC) 04/19/2024 Motion sickness Type 2 diabetes mellitus Family History * Patient is adopted Medical History Relation Name Comments No Known Problems Father No Known Problems Mother Relation Name Status Comments Father Other Mother Other Social History Tobacco Use Types Packs/Day Years Used Date Smoking Tobacco: Former Cigarettes Q uit: 2005 Passive Smoke Exposure: Never Smokeless Tobacco: Never Tobacco Cessation:Counseling Given: Not Answered Alcohol Use Standard Drinks/Week Comments Yes 0 (1 standard drink = 0.6 oz pur e alcohol) AUDIT-C Answer Date Recorded Q1: How often do you have a drink containing alc ohol? 2-4 times a month 07/13/2024 Q2: How many drinks containi ng alcohol do you have on a typical day when you are drinking? 5 or 6 07/13/2024 Q3: How often do you have si x or more drinks on one occasion? Weekly 07/13/2024 Personal Safety Answer Date Recorded Have you ever been in or are you currently in a harmful physical or emotional relationship or is someone making you feel afraid or unsafe? Denies 07/13/2024 Sex and Gender Information Value Date Recorded Sex Assigned at Not on file Legal Sex Male 12:18 PM REGIONAL CLINICAL DIRECTOR Gender Identity Male 04/30/2021 11:38 AM REGIONAL CLINICAL DIRECTOR Sexual Orientation Not on file Obstetrics History Last Filed Vital Signs Vital Sign Reading Time Taken Comments Blood Pressure 116/70 01/24/2025 10:23 AM CDT Pulse 48 01/24/2025 10:23 AM CDT Temperature 37.1 C (98.8 F) 01/05/2025 3:31 PM CDT Respiratory Rate 17 07/30/2024 1:31 PM REGIONAL CLINICAL DIRECTOR Oxygen Saturation 98% 01/24/2025 10:23 AM CDT Inhaled Oxygen Concentration - - Weight 73 kg (161 lb) 01/24/2025 10:23 AM CDT Height 177.8 cm (5' 10) 01/24/2025 10:23 AM CDT Body Mass Index 23.1 01/24/2025 10:23 AM CDT Plan of Treatment Health Maintenance Due Date Last Done Comments Albumin Creatinine Ratio, Urine 1959 Colon Cancer Screening-Colonoscopy 1959 Depression Screening 1959 Hemoglobin A1C 1959 Prostate Cancer Screening-PSA 1959 Dilated Eye Exam 1959 Foot Exam 1959 Pneumococcal vaccine 65+ (1 of 2 - PCV) 1978 Zoster Vaccine (1 of 2) 2009 Abdominal Aortic Aneurysm (A AA) Screen 2024 Well Visit 65+ 2024 Lipid Panel 08/15/2024 08/15/2023, 05/24, 06/21/2021, Additional history exists Covid-19 Vaccine (3 - 2024-2 6 season) 2025 11/03/2020, 10/06/2020 Influenza Vaccine (#1) 2025 8, 04/24/2017, 05/31/2016, Additional history exists Fall Risk Assessment 07/13/2025 07/13/2024 eGFR 11/26/2025 11/26/2024, 05/24, 05/18/2024, Additional history exists DTaP/Tdap/Td Vaccine (2 - Td or Tdap) 01/04/2031 01/04/2021, 07/31/2020 Hepatitis B Screening Completed 04/19/2022 Hepatitis C Screening Completed 04/19/2022 Medical Devices Implanted Type Area Buckle Coverer Device Identifier Shelf Expiration Date Model / Serial / Lot Implantable Loop Recorder Implantable Loop Recorder Chest Wall Stent Stent Heart Stent-06/11/20 24 Implanted:Qty: 1 on 06/11/2024 Stent N/A: Heart Medtronic [facility] Surgery 3.5 X 18mm Kartik [employer] Rx Coronary Stent [id number] - [id number] Implanted:Qty: 1 on 06/11/2024 by Dex Rodriguez MD at [facility] Medtronic Card Vasc Surgery 02/25/2027 [id number] / / [id number] Procedures Procedure Name Priority Date/Time Associated Diagnosis Comments DEVICE CHECK - REMOTE Routine 02/15/2025 7:15 AM CDT Bifascicular block Status post placement of implantable loop recorder Near syncope ECG 12-LEAD Routine 01/24/2025 10:31 AM CDT Cardiac arrhythmia, unspecified cardiac arrhythmia type ECG 12-LEAD Routine 01/20/2025 11:34 AM CDT Cardiac arrhythmia, unspecified cardiac arrhythmia type DEVICE CHECK - REMOTE Routine 01/04/2025 10:29 AM CDT Bifascicular block Status post placement of implantable loop recorder Near syncope RENAL FUNCTION PANEL Routine 11/26/2024 9:37 AM CDT Isolated proteinuria with other morphologic lesion POCT LIPID PANEL Routine 08/15/2023 12:0 4 PM REGIONAL CLINICAL DIRECTOR Mixed diabetic hyperlipidemia associated with type 2 diabetes mellitus (HCC) HEPATITIS C ANTIBODY Routine 04/19/2022 8:32 AM CDT from Last 3 Months or Most Recently Relevant to Health Maintenance Results * DEVICE CHECK - REMOTE (02/15/2025 7:15 AM CDT) Anatomical Region Laterality Modality Other Narrative 02/16/2025 12:15 PM CDT Medtronic [id number] Loop Recorder. Dx; Syncope, Poss SSS, Bifascicular Block. DOI 09/03/2023-[place]. [facility]link remote monitoring. Routine ILR remote. Normal device function. Battery function-good. Presenting rhythm: NSR with PVC and compensatory pause Medications: ASA 81 mg, Plavix 75 mg, losartan 150 mg, sotalol 80 mg Counters since last scheduled transmission on 01/03/25. No auto or patient recorded episodes noted. See scanned report. [facility] remote f/u 04/17/25. Rich Marrufo RN Dex Rodriguez MD CV CARDIAC SERVICES PROCEDURES F inal Result * ECG 12 lead (01/24/2025 10:31 AM CDT) Juan Llanos MD ECG ORDERABLES Final R esult CONS SCIMAGE * ECG 12 lead (01/20/2025 11:34 AM CDT) Juan Llanos MD ECG ORDERABLES Final R esult * DEVICE CHECK - REMOTE (01/04/2025 10:29 AM CDT) Anatomical Region Laterality Modality Other Narrative 01/15/2025 7:03 PM CDT [employer] Loop Recorder. Dx: Syncope Monitoring period: 22-Nov-2024 to 03-Jan-2025 Routine ILR remote. Normal device function. Battery function OK. Presenting rhythm: VS at 70 bpm Medications: ASA, Metoprolol XL, Plavix-among others Since last scheduled remote: --1 Pause, ECG shows 3 seconds pause at 3:53 a.m. See scanned report. Next check: 42 day remote JAYDE Louis Device Specialist Dex Rodriguez MD CV CARDIAC SERVICES PROCEDURES F inal Result * (ABNORMAL) Renal function panel (11/26/2024 9:37 AM CDT) Glucose 105(H) 65 - 99 mg/dL [facility] Comment: Fasting reference interval For someone without known diabetes, a glucose value between 100 and 125 mg/dL is consistent with prediabetes and should be confirmed with a follow-up test. BUN 21 7 - 25 mg/dL [facility] Creatinine 0.88 0.70 - 1.35 mg/dL [facility] eGFR 95 > OR = 60 mL/min/1.7 3m2 [facility] BUN/creat ratio SEE NOTE: 6 - 22 (calc) [facility] Comment: Not Reported: BUN and Creatinine are within reference range. Sodium 138 135 - 146 mmol/L [facility] Potassium, pl 4.8 3.5 - 5.3 mmol/L [facility] Chloride 101 98 - 110 mmol/L [facility] CO2 25 20 - 32 mmol/L [facility] Calcium 10.1 8.6 - 10.3 mg/dL [facility] Phosphorus, sr 3.5 2.1 - 4.3 mg/dL [facility] Albumin 4.5 3.6 - 5.1 g/dL [facility] Blood 11/26/2024 9:37 AM CDT 11/26/2024 9:38 AM CDT Natalie Grullon MD LAB BLOOD ORDERABLES Fi nal Result QUEST [facility] [address] [facility] [place] [address] * POCT lipid panel (08/15/2023 12:04 PM REGIONAL CLINICAL DIRECTOR) Cholesterol, POC 146 mg/dL Comment:GLU = 117 HDL, POC 55 mg/dL Triglycerides, POC 140 mg/dL LDL Cholesterol POC 64 mg/dL Chol/HDL Ratio, POC 2.7 Non-HDL Cholesterol, POC 92 mg/dL Cholesterol Total, POC 146 mg/dL Capillary blood 08/15/2023 1 2:04 PM REGIONAL CLINICAL DIRECTOR Dany Griffin MD POINT OF CARE TEST ORDER KORI Final Result * Hepatitis C antibody (04/19/2022 8:32 AM CDT) Hep C Ab NON-REACTI VE NON-REACT NAGA [facility] SIGNAL TO CUT-OFF 0.10 <1.00 [facility] Comment: HCV antibody was non-reactive. There is no laboratory evidence of HCV infection. In most cases, no further action is required. However, if recent HCV exposure is suspected, a test for HCV RNA (test code 66505) is suggested. For additional information please refer to http://education.[employer]/faq/FZQ94b0 (This link is being provided for informational/ educational purposes only.) 04/19/2022 8:32 AM CDT 04/19/2022 8:38 AM CDT Natalie Grullon MD LAB MICROBIOLOGY - GENE RAL ORDERABLES Final Result Front Desk [facility] [address] [place] [address] from Last 3 Months or Most Recently Relevant to Health Maintenance Insurance [employer] [address] [employer] [address] Advance Directives For more information, please contact: [phone] * Full Code (Latest Code Status on File) Date Activated Date Inactivated Comments 06/11/2024 11:56 AM 06/11/2024 8:00 PM Care Teams Vehicle Trimmer Relationship Specialty Start Date End Date Eric España MD PCP - General Internal Medicine 04/24/17 Cary Holm NP Nurse Practitioner 04/19/24
--- OUTSIDE RECORDS SUMMARY | 2025-03-18 12:08 | XMS_ITS | Encounter Summary ---
Author Organization [facility] Address [address] [place] [address] Care Team Providers Care Market Research Coordinator Name Role Phone Sarkis Allen DO Primary Care Provi miguel Encounter Details Date Type Department Care Team (Late st Contact Info) Description 11/12/2004 Outpatient Historical [facility] Family Medicine [address] [place] [phone] Daniel Edmondson Social History Tobacco Use Types Packs/Day Years Used Date Smoking Tobacco: Never Assessed Sex and Gender Information Value Date Recorded Sex Assigned at Not on file Legal Sex Male 3:16 AM PLATER SUPERVISOR Gender Identity Not on file Sexual Orientation Not on file documented as of this encounter Plan of Treatment Not on file documented as of this encounter Visit Diagnoses Not on filedocumented in this encounter Care Teams Market Research Coordinator Relationship Specialty Start Date End Date Sarkis Allen DO [address] [place] [address] [place] [phone] PCP - General 06/02/08 04/28/17 documented as of this encounter
--- OUTSIDE RECORDS SUMMARY | 2025-03-18 12:08 | XMS_ITS | Clinical Summary ---
Author Organization [facility] Address [address] [facility] [place] [phone] Care Team Providers Care Behavioral Analyst Name Role Phone Unavailable Primary Care Provider Unavailabl e Allergies No known active allergies Medications blood sugar diagnostic (ONE TOUCH ULTRA TEST) Strp by See Admin Instructions route. 100 3 03/02/20 08 Active Lancets (ONE TOUCH ULTRASOFT LANCETS) Misc Misc by Misc.(Non-Drug; Combo Route) route. 100 3 03/02/20 08 Active losartan (COZAAR) 25 mg Oral Tab Take 1 Tab by mouth daily. 30 Tab 5 06/07/20 08 Active sildenafil (VIAGRA) 50 mg Oral Tab Take 1 Tab by mouth 1 time daily as needed for Other (See Comment). Do not take with any nitrate medications. 9 Tab 1 06/21/20 08 Active ezetimibe-simvastati n (VYTORIN 04/11) 10-20 mg Oral Tab Take 1 Tab by mouth daily. 30 Tab 0 01/19/20 09 Active fenofibrate nanocrystallized (TRICOR) 145 mg Oral Tab Take 1 Tab by mouth daily. 30 Tab 0 01/19/20 09 Active metoprolol tartrate (LOPRESSOR) 25 mg Oral Tab Take 1 Tab by mouth 2 times daily. 60 Tab 0 01/19/20 09 Active clopidogrel (PLAVIX) 75 mg Oral Tab Take 1 Tab by mouth daily. 30 Tab 0 05/08/20 09 Active Active Problems Patient Care Coordination No te Formatting of this note migh t be different from the original. Rn Recovery Dr. Elias Royal No additional problems on file Social History Tobacco Use Types Packs/Day Years Used Date Smoking Tobacco: Never Alcohol Use Standard Drinks/Week Comments Not Asked 0 (1 standard drink = 0.6 oz pur e alcohol) Sex and Gender Information Value Date Recorded Sex Assigned at Not on file Legal Sex Male 3:16 AM CONVERSION DEVELOPER Gender Identity Not on file Sexual Orientation Not on file Last Filed Vital Signs Vital Sign Reading Time Taken Comments Blood Pressure 122/80 06/07/2008 9:10 AM CONVERSION DEVELOPER Pulse 64 06/07/2008 9:10 AM CONVERSION DEVELOPER Temperature - - Respiratory Rate - - Oxygen Saturation - - Inhaled Oxygen Concentration - - Weight 91.2 kg (201 lb) 06/07/2008 9:10 AM CONVERSION DEVELOPER Height 180.3 cm (5' 11) 06/07/2008 9:10 AM CONVERSION DEVELOPER Body Mass Index 28.03 06/07/2008 9:10 AM CONVERSION DEVELOPER Plan of Treatment Health Maintenance Due Date Last Done Comments DTAP/TDAP/TD VACCINES (1 - Tdap) 1978 COLORECTAL SCREENING 2004 Colorectal Cancer Screening 2004 FIT-DNA Q 3 years 2004 FIT/FOBT Q 1 year 2004 Flex Sig/CT Colonography Q 5 years 2004 PNEUMOCOCCAL VACCINE 50+ YEARS (1 of 1 - PCV) 03/24/20 09 ZOSTER VACCINE (1 of 2) 2009 INFLUENZA VACCINE (#1) 2025 RSV VACCINE (60+ or ) (1 - 1-dose 75+ series) 2034 Insurance [facility] OPTIONS PPO [id number] [facility] BLUE ACCESS/TRUE BLUE PPO [facility]
--- OUTSIDE RECORDS SUMMARY | 2025-03-18 12:08 | XMS_ITS | Encounter Summary ---
Author Organization [facility] Address 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
--- OUTSIDE RECORDS SUMMARY | 2025-03-18 12:08 | XMS_ITS | Encounter Summary ---
Author Organization [facility] Address [address] [place] [address] Care Team Providers Care Field Research Associate Name Role Phone Sarkis Allen DO Primary Care Provi miguel Encounter Details Date Type Department Care Team (Late st Contact Info) Description 07/23/[address] 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
--- OUTSIDE RECORDS SUMMARY | 2025-03-18 12:08 | XMS_ITS | Encounter Summary ---
Author Organization [facility] Address [address] [place] [address] Care Team Providers Care Hr Systems Analyst Name Role Phone Sarkis Allen DO Primary Care Provi miguel Encounter Details Date Type Department Care Team (Late st Contact Info) Description 05/28/2005 Outpatient Historical [facility] Medicine [address] [place] [phone] Sarkis Allen DO [address] [facility] [place] [phone] Social History Tobacco Use Types Packs/Day Years Used Date Smoking Tobacco: Never Assessed Sex and Gender Information Value Date Recorded Sex Assigned at Not on file Legal Sex Male 3:16 AM AUTOMOTIVE MANAGER Gender Identity Not on file Sexual Orientation Not on file documented as of this encounter Plan of Treatment Not on file documented as of this encounter Visit Diagnoses Not on filedocumented in this encounter Care Teams Hr Systems Analyst Relationship Specialty Start Date End Date Sarkis Allen DO [address] [facility] [place] [phone] PCP - General 06/02/08 04/28/17 documented as of this encounter
--- OUTSIDE RECORDS SUMMARY | 2025-03-18 12:08 | XMS_ITS | Clinical Summary ---
Author Organization [facility] Address [facility] [place] [address] Care Team Providers Care Bread And Pastry Baker Name Role Phone Unavailable Primary Care Provider Unavailabl e Social History Tobacco Use Types Packs/Day Years Used Date Smoking Tobacco: Never Sex and Gender Information Value Date Recorded Sex Assigned at Not on file Legal Sex Male 5:07 PM CDT Gender Identity Not on file Sexual Orientation Not on file Last Filed Vital Signs Vital Sign Reading Time Taken Comments Blood Pressure 140/82 08/06/2013 12:20 PM ASSISTANT SALES DIRECTOR Pulse 72 08/06/2013 12:20 PM ASSISTANT SALES DIRECTOR Temperature - - Respiratory Rate 18 08/06/2013 12:20 PM ASSISTANT SALES DIRECTOR Oxygen Saturation - - Inhaled Oxygen Concentration - - Weight 86.2 kg (190 lb) 08/06/2013 12:20 PM ASSISTANT SALES DIRECTOR Height 180.3 cm (5' 11) 08/06/2013 12:20 PM ASSISTANT SALES DIRECTOR Body Mass Index 26.5 08/06/2013 12:20 PM ASSISTANT SALES DIRECTOR Plan of Treatment Health Maintenance Due Date Last Done Comments Colorectal Cancer Screening Colonoscopy (10 Years) 1959 Hepatitis C 1977 DTaP, Tdap and Td Vaccines ( 1 - Tdap) 1978 Pneumococcal Vaccine: 50+ Ye ars (1 of 1 - PCV) 2009 Zoster Vaccines (1 of 2) 2009 COVID-19 Vaccine ( - 2023-2 5 season) 2025 RSV Immunization or 60+ Years (1 - 1-dose 75+ series) 2034 Meningococcal B Vaccine Aged Out No l onger eligible based on patient's age to complete this topic Meningococcal Vaccine Aged Out No cristiano filiberto eligible based on patient's age to complete this topic RSV Immunizations Under 20 Months Aged Out No longer eligible based on patient's age to complete this topic
[2025-03-18 13:05] LABS: Alanine Aminotransferase 23 U/L (6-50); Albumin Level 4.7 g/dL (3.5-5.1); Alkaline Phosphatase 64 U/L (38-126); Anion Gap 10 mmol/L (4-12); Aspartate Amino Transferase 33 U/L (17-59); Bilirubin,Total 1.9 mg/dL (0.2-1.3); Blood Urea Nitrogen 18 mg/dL (9-20); Calcium 10.1 mg/dL (8.4-10.2); Carbon Dioxide 28 mmol/L (22-30); Chloride 102 mmol/L (98-107); Cholesterol 138 mg/dL (0-200); Estimated Glomerular Filt Rate > 60; Glucose 105 mg/dL (65-110); HDL Direct 64 mg/dL; Osmolality Calculated 291 mOsm/kg (285-295); Potassium 4.6 mmol/L (3.4-5.0); Sodium 140 mmol/L (137-145); Total Protein 8.9 g/dL (6.3-8.2); Triglycerides 98 mg/dL (<150)
[2025-03-18 13:12] LABS: Hemoglobin A1C 6.4 % (<5.7)
== END 2025-03-18 12:06 | disposition home or self-care (01) ==
LOC: CHSLAB 12:06
PROVIDERS: PCP Internal Medicine; Visit Provider Internal Medicine
DX: I25.10 Atherosclerotic heart disease of native coronary artery without angina pectoris (principal); E11.9 Type 2 diabetes mellitus without complications
CPT/HCPCS: 36415; 80053; 80061; 83036